=== PATIENT | male | born 1975 | race Caucasian/White ===

== ENCOUNTER 2022-06-13 15:01 | Outpatient (REF) | payer OTHER, SELFPAY ==
[2022-06-13 16:14] LABS: SARS PCR* Negative SARS-CoV-2 (Negative)
== END 2022-06-13 15:02 | disposition home or self-care (01) ==
LOC: NPINS 15:01
PROVIDERS: Visit Provider Internal Medicine
DX: Z11.52 Encounter for screening for COVID-19 (principal)
CPT/HCPCS: 87635

== ENCOUNTER 2022-06-16 20:20 | Outpatient (CLI) | payer OTHER, SELFPAY | END 2022-06-16 20:21 | disposition home or self-care (01) | DX: G47.33 Obstructive sleep apnea (adult) (pediatric) (principal); G47.10 Hypersomnia, unspecified | CPT/HCPCS: 95810 ==